=== PATIENT | male | born 1970 | race Hispanic/Latino ===

== ENCOUNTER 2023-02-16 21:48 | Observation (INO) | payer BC ==
[~2023-02-16] VITALS: Ht 170.2 cm; Wt 92.5 kg
[2023-02-16] MEDS ORDERED: ONDANSETRON HCL INJ 2MG/ML 2ML 2 MG/ML VIAL IV STA (22:39)
[2023-02-16] MEDS ORDERED: FAMOTIDINE 20 MG/2 ML VIAL IV STA (22:39)
[2023-02-16] MEDS ORDERED: FAMOTIDINE 20 MG/2 ML VIAL IV ONE (22:44)
[2023-02-16] MEDS ORDERED: SODIUM CHLORIDE 0.9% 1000ML 1,000 ML ONE ×2 (22:44→23:02)
[2023-02-16] MEDS ORDERED: ONDANSETRON HCL INJ 2MG/ML 2ML 2 MG/ML VIAL ONE (22:44)
[2023-02-16] MEDS ORDERED: SODIUM CHLORIDE 0.9% 1000ML 1,000 ML IV SCH ×2 (22:45→23:45)
[2023-02-17] VITALS (9 sets, daily range): BP systolic 136–173; BP diastolic 82–93
[2023-02-17] MEDS: SODIUM CHLORIDE 0.9% 1000ML 1,000 ML IV SCH ×3 (00:19→12:19)
[2023-02-17] MEDS ORDERED: ONDANSETRON HCL INJ 2MG/ML 2ML 2 MG/ML VIAL IV PRN (02:30)
[2023-02-17 06:54] LABS: BASOPHILS % 0.2 % (0.0-1.0); EOSINOPHILS # (AUTO) 0.1 (0.0-0.4); HEMATOCRIT 46.4 % (38.2-49.6); HEMOGLOBIN 15.4 g/dL (14.0-18.0); LYMPHOCYTES # (AUTO) 0.8 (1.0-3.2); LYMPHOCYTES % 16.2 % (18.0-39.1); MEAN CORPUSCULAR HGB CONC 33.2 g/dL (31-35); MEAN CORPUSCULAR VOLUME 90.4 fL (81-99); MONOCYTES # (AUTO) 0.7 (0.2-0.8); NEUTROPHILS # (AUTO) 3.5 (2.1-6.9); NEUTROPHILS % 69.2 % (38.7-80.0); PLATELET COUNT 139 x10e3/uL (140-360); RED BLOOD COUNT 5.13 x10e6/uL (4.3-5.7); RED CELL DISTRIBUTION WIDTH 12.9 % (11.7-14.4)
[2023-02-17 07:12] LABS: ALBUMIN 3.7 g/dL (3.5-5.0); ALBUMIN/GLOBULIN RATIO 1.2 (0.8-2.0); CALCIUM 8.5 mg/dL (8.4-10.2); CREATININE, SERUM 2.24 mg/dL (0.72-1.25); MAGNESIUM 1.9 MG/DL (1.3-2.1); PHOSPHORUS 2.8 MG/DL (2.3-4.7)
[2023-02-17] MEDS ORDERED: SIMETHICONE 80 MG CHEW PO PRN (12:30)
[2023-02-17] MEDS ORDERED: LIDOCAINE 4% PATCH TP PRN (12:30)
[2023-02-17] MEDS ORDERED: DEXTROSE 50% SYRINGE 50 ML IV PRN (12:30)
[2023-02-17] MEDS ORDERED: BENZONATATE 100 MG CAP PO PRN (12:30)
[2023-02-17] MEDS ORDERED: ALBUTEROL/IPRATROPIUM 3 ML NEB NEB PRN (12:30)
[2023-02-17] MEDS ORDERED: POTASSIUM CHLORIDE 20 MEQ TAB CR PO PRN (12:30)
[2023-02-17] MEDS ORDERED: ACETAMINOPHEN 325 MG TAB PO PRN (12:30)
[2023-02-17] MEDS ORDERED: DOCUSATE SODIUM 100 MG CAP PO PRN (12:30)
[2023-02-17] MEDS ORDERED: DIPHENHYDRAMINE HCL 25 MG CAP PO PRN (12:30)
[2023-02-17] MEDS ORDERED: HYDRALAZINE HCL 20 MG/ML VIAL IV PRN (12:30)
[2023-02-17] MEDS ORDERED: MELATONIN 5 MG TABLET PO PRN (12:30)
[2023-02-17 18:45] LABS: CLARITY,URINE CLEAR (CLEAR); COLOR,URINE YELLOW (YELLOW); KETONES,URINE NEGATIVE (NEGATIVE); LEUKOCYTE ESTERASE ,URINE NEGATIVE (NEGATIVE); NITRITE,URINE NEGATIVE (NEGATIVE); PROTEIN,URINE DIPSTICK NEGATIVE (NEGATIVE); URINE UROBILINOGEN 0.2 mg/dL (0.2 - 1)
[2023-02-17 18:55] LABS: BACTERIA,URINE FEW /HPF; WBC,URINE (MAN) 0-5 /HPF (0-5)
[2023-02-18] VITALS (7 sets, daily range): BP systolic 145–156; BP diastolic 81–90
[2023-02-18] MEDS: SODIUM CHLORIDE 0.9% 1000ML 1,000 ML IV SCH ×3 (02:25→10:58)
[2023-02-18 06:05] LABS: BASOPHILS % 0.3 % (0.0-1.0); HEMATOCRIT 43.2 % (38.2-49.6); HEMOGLOBIN 14.4 g/dL (14.0-18.0); LYMPHOCYTES % 25.4 % (18.0-39.1); MEAN CORPUSCULAR HEMOGLOBIN 29.9 pg (28-32); MEAN CORPUSCULAR HGB CONC 33.3 g/dL (31-35); MEAN CORPUSCULAR VOLUME 89.6 fL (81-99); MONOCYTES # (AUTO) 0.5 (0.2-0.8); NEUTROPHILS # (AUTO) 2.3 (2.1-6.9); PLATELET COUNT 113 x10e3/uL (140-360); RED BLOOD COUNT 4.82 x10e6/uL (4.3-5.7); RED CELL DISTRIBUTION WIDTH 12.5 % (11.7-14.4)
[2023-02-18 06:27] LABS: ANION GAP 14.5 mmol/L (8-16); CALCIUM 8.3 mg/dL (8.4-10.2); CREATININE, SERUM 1.22 mg/dL (0.72-1.25); MAGNESIUM 1.8 MG/DL (1.3-2.1); PHOSPHORUS 2.4 MG/DL (2.3-4.7); POTASSIUM 3.5 mmol/L (3.5-5.1)
[2023-02-18 06:53] LABS: THYROID STIMULATING HORMONE 0.612 uIU/mL (0.350-4.940)
[2023-02-18] MEDS: PANTOPRAZOLE SOD 40 MG TABEC PO SCH (10:51)
[2023-02-19 01:19] VITALS: BP 146/83
[2023-02-19 05:31] VITALS: BP 146/83
[2023-02-19 08:00] VITALS: BP 146/83
[2023-02-19 08:13] VITALS: BP 146/83
[2023-02-19] MEDS: PANTOPRAZOLE SOD 40 MG TABEC PO SCH (09:01)
[2023-02-19 11:49] VITALS: BP 133/84
[2023-02-19 16:08] VITALS: BP 139/88
== END 2023-02-19 16:26 | disposition home or self-care (01) ==
LOC: FSED 22:03 → INTOOBSV 23:48 → OBSVTOIN 23:48 → ERHOLD 23:48 → MED/SURG3 02-17 01:16
PROVIDERS: ADMIT Internal Medicine; ATTEND Internal Medicine
DX: A08.4 Viral intestinal infection, unspecified (principal); N17.9 Acute kidney failure, unspecified; E86.0 Dehydration; N13.2 Hydronephrosis with renal and ureteral calculous obstruction; N40.0 Benign prostatic hyperplasia without lower urinary tract symptoms; E66.9 Obesity, unspecified; K40.90 Unilateral inguinal hernia, without obstruction or gangrene, not specified as recurrent; E87.20 Acidosis, unspecified; D75.1 Secondary polycythemia; Z20.822 Contact with and (suspected) exposure to COVID-19; Z68.32 Body mass index [BMI] 32.0-32.9, adult
CPT/HCPCS: 36415 ×2; 74176; 80048 ×2; 80053; 80076; 81001; 81003; 83735 ×2; 84100 ×2; 84443; 85025 ×3; 87045; 87324; 87449; 99284; G0378 ×4; J2405; J7030 ×2; S0164 ×2; U0002